=== PATIENT | female | born 1990 | race Hispanic/Latino ===

== ENCOUNTER 2016-11-22 11:09 | Emergency (ER) | payer OTHER ==
[~2016-11-22] VITALS: Ht 157.5 cm; Wt 66.7 kg
[~2016-11-22 11:09] MED LIST: CIPRODEX 0.3%-7.5 ML ANY; DOXYCYCLINE MO100 MG PO; TRIAMCINOL0.1 %/453 TOP
[2016-11-22 11:11] VITALS: BP 137/92
--- NOTE | 2016-11-22 11:39 | ED HAND/WRIST INJURY COMPLAINT ---
History of Present Illness General Chief Complaint: Hand or Wrist Injury Stated Complaint: CUT FINGER LAST WEEK WORRIED SHE HIT A NERVE Source: patient Exam Limitations: no limitations Vital Signs & Intake/Output Vital Signs & Intake/Output Vital Signs Date Time Temp Pulse Resp B/P Pulse O2 O2 Flow FiO2 Ox Delivery Rate 11/22 1111 97.1 98 14 137/92 98 Room Air Allergies Coded Allergies: wheat (UNKNOWN 01/25/16) Reconcile Medications No Known Home Medications Triage Note: 25 Y/O FEMALE GLASS LAST WEEK AND STATES SHE THOUGHT THE CUT WAS HEALING FINE BUT NOW SHE IS CONCERNED SHE CANNOT "BEND THE FINGER". PT WORRIED SHE DID DAMAGE TO A NERVE. WAS EVAL'D AT WALK IN AND HAS BEEN USING PRESCRIBED ANTIBIOTIC CREAM WITH NO RELIEF. UNKNOWN LAST TETANUS. Triage Nurses Notes Reviewed? yes Occurred: 5 DAYS Duration: day(s): (5) Timing: no prior history Injury Environment: home Severity: moderate Severity Numbers: 6 Pain/Injury Location: Right: 3rd finger. Context: laceration Method of Injury: laceration Modifying Factors: Improves With: immobilization. : No Patient currently breastfeeds: No HPI: Patient is a 25-year-old female with no known medical history presenting to the emergency Department chief complaint of pain, swelling and laceration to right middle finger that happened 5 days ago while she was cleaning. She reports that she accidentally hit her hand on a piece of broken glass. Unsure if the glass broke. Pain has been getting worse. She has developed the moving her right middle finger. Denies any fevers or chills. She was seen at a walk-in clinic yesterday and given Bactroban which she has been applying. She came in today for reevaluation because of worsening pain. No numbness or tingling. Past History Travel History Traveled to [place] past 21 day No Medical History Any Pertinent Medical History? see below for history Neurological: NONE EENT: NONE Cardiovascular: NONE Respiratory: NONE Gastrointestinal: NONE Hepatic: NONE Renal: NONE Musculoskeletal: NONE Psychiatric: NONE Endocrine: NONE Blood Disorders: NONE Cancer(s): NONE TABLE GAMES SUPERVISOR/Reproductive: NONE Surgical History Surgical History: N Psychosocial History What is your primary language [place] Tobacco Use: Never used Family History Hx Contributory? No Review of Systems Review of Systems Constitutional: Reports: no symptoms. Comments Review of systems: See HPI, All other systems negative. Constitutional, no chills fever or weight loss HEENT: No visual changes Cardiovascular: No chest pain Skin, no jaundice no rashes Respiratory: No dyspnea cough GI: No nausea no vomiting Muscle skeletal: no back pain, no neck pain, Neurologic: No numbness Psych: No stress anxiety Immunology: No splenectomy or history of AIDS Physical Exam Physical Exam General Appearance: well developed/nourished, no apparent distress, alert, awake , comfortable Hand Left: normal inspection, normal range of motion Hand Right: 3rd finger (TENDER) Comments: Well-developed well-nourished person in no acute distress HEENT: Pupils equally round and reactive to light and accommodation. Nose is atraumatic. Neck: NORMAL INSPECTION Back: Nontender Cardiovascular: normal JVP Respiratory: No respiratory distress. Extremity: Mild edema noted over the right third PIP joint. Limited range of motion secondary to pain. Capillary refill is intact in upper extremities. Radial pulses are 2+ bilaterally. Neuro: Alert oriented x3, motor sensory normal Skin: 3 mm linear well approximated, healing laceration noted over the right third PIP joint. Psych: Mood and affect is normal, memory and judgment is normal. Progress Differential Diagnosis: LACERATION, CELLULITIS, RETAINED FB Plan of Care: Orders Procedure Date/time Status XRY-FINGERS, RIGHT 11/22 1157 Active (GEORGETTE OLEARY,ELLIOTT) Diagnostic Imaging: Viewed by Me: Radiology Read. Discussed w/RAD: Radiology Read. Radiology Impression: PATIENT: KAT WATKINS PRESENT AGE: 25 PATIENT ACCOUNT NO: [id number] : 91 LOCATION: [facility] ORDERING PHYSICIAN: ELLIOTT OLEARY SERVICE DATE: 11/22/16 EXAM TYPE: RAD - XRY-FINGERS, RIGHT EXAMINATION: XR FINGER, RIGHT CLINICAL INFORMATION: Cut third digit on glass. COMPARISON: None TECHNIQUE: Three views of the right hand and fingers. FINDINGS: The bones and soft tissues are normal. No fracture. Alignment is anatomic. Joint spaces are maintained. No radiopaque foreign body is seen. IMPRESSION: Normal finger radiographs. DICTATED BY: JOSE MATA MD DATE/TIME DICTATED:11/22/161244 SWIMMING INSTRUCTOR:PAPITO DATE/TIME TRANSCRIBED:11/22/161244 CONFIDENTIAL, DO NOT COPY WITHOUT APPROPRIATE AUTHORIZATION. Departure Departure Time of Disposition: 1254 Disposition: HOME OR SELF CARE Condition: Stable Clinical Impression Primary Impression: Abrasion Secondary Impressions: Finger sprain Qualifiers: Encounter type: initial encounter Finger: middle finger Sprain of finger site: interphalangeal joint Laterality: right Qualified Code: S63.632A - Sprain of interphalangeal joint of right middle finger, initial encounter Referrals: ISSAC STANTON,STEPHANI BELL MD,GRISELDA (PCP/Family) Additional Instructions: Follow-up with your primary care physician call to make an appointment. Take anti-inflammatory as prescribed. Wear splint for support. Return for any increased pain swelling or redness. Your also given a hand specialist she can follow-up with. Departure Forms: Customer Survey General Discharge Information Prescriptions: Current Visit Scripts Naproxen (Naprosyn) 1 TAB PO BID PRN PAIN/INFLAMMATION #20 TAB Procedures Splinting Location: RIGHT MIDDLE FINGER Manual Alignment Performed: No Pre-Made Type: metal Splint: RIGHT MIDDLE FINGER Splint Applied By: splint applied by me Pre-Proc Neuro Vasc Exam: normal Post-Proc Neuro Vasc Exam: normal Progress: Patient tolerated procedure well.
--- NOTE | 2016-11-22 12:53 | RADIOLOGY REPORT ---
EXAMINATION: XR FINGER, RIGHT CLINICAL INFORMATION: Cut third digit on glass. COMPARISON: None TECHNIQUE: Three views of the right hand and fingers. FINDINGS: The bones and soft tissues are normal. No fracture. Alignment is anatomic. Joint spaces are maintained. No radiopaque foreign body is seen. IMPRESSION: Normal finger radiographs.
[2016-11-22] MEDS ORDERED: NAPROSYN500 M1 PO (12:57)
== END 2016-11-22 13:22 ==
LOC: ERH 11:09
DX: S63.612A Unspecified sprain of right middle finger, initial encounter (principal); S60.412A Abrasion of right middle finger, initial encounter; W22.09XA Striking against other stationary object, initial encounter; W25.XXXA Contact with sharp glass, initial encounter; Y93.E9 Activity, other interior property and clothing maintenance
CPT/HCPCS: 73140-RT